=== PATIENT | male | born 1995 | race Two or more races ===

== ENCOUNTER 2025-01-08 12:42 | Emergency (ER) | payer SELFPAY ==
[2025-01-08 13:38] VITALS: BP 119/76; PULSE 87; RESP 18; TEMP 37.2; O2SAT 98; BMI 26.6
--- NOTE | 2025-01-08 14:01 | XR_ITS ---
Examination: CT lumbar spine, without contrast. 2-D sagittal reconstructions. 2-D coronal reconstructions. 3-D reconstructions. Date and time of exam:January 08, 2025 1422 hrs. Indications: Lifting injury to the lower back yesterday with persistent lower back pain CTDI: vol (mGy):19.7 DLP: (mGycm):697 Technique: Multiple 1.25 mm axial sections of the lumbar spine without intravenous contrast have been obtained. 2-D sagittal and coronal reconstructions have been obtained. 3-D reconstructions have been obtained. Low dose protocols were performed. One or more of the following dose reduction techniques were used; automated exposure control, adjustment of the mA and/or KV according to patient size, use of iterative reconstruction technique. Findings: Satisfactory alignment lumbar vertebral bodies No lumbar fracture Lumbar pedicles, laminae, transverse and posterior spinous processes intact L5-S1 3 mm central lumbar disc bulge Impression: No lumbar fracture L5-S1 3 mm central lumbar disc bulge
--- NOTE | 2025-01-08 14:03 | EDNOTE_ITS ---
ED Back Injury Pain RME/HPI General Chief Complaint: Back Pain/Injury Stated Complaint: BACK PAIN POST LIFTING BOX X YESTERDAY Time Seen by Provider: 01/08/25 13:38 Arrival date/time: 01/08/25 12:42 This is a 29-year-old male that comes in with complaints of back pain after lifting a heavy machine at his work. 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 Patient states that he was moving a heavy machine from 1 area to another. Patient states it did not initially hurt but maybe 2 to 3 hours after he had lifted the heavy machine he stated that he started having lower back pain more so on the left lateral muscles of his lower back. Patient denies any numbness tingling. Patient denies any loss of bowel or bladder control. Patient denies any past medical history. Related Data Allergies Allergy/AdvReac Type Severity Reaction Status Date / Time No Known Allergies Allergy Verified 01/08/25 12:47 Course Orders Category Date Time Status CT lumbar spine wo con Stat Exams 01/08/25 14:01 Completed Acetaminophen Tab [Tylenol ES Tab] Med 01/08/25 14:02 Discontinued 1,000 mg PO X1 ONE CYCLObenzaPRINE [Flexeril] Med 01/08/25 14:02 Discontinued 5 mg PO X1 ONE Ibuprofen Tab [Motrin Tab] Med 01/08/25 14:02 Discontinued 800 mg PO X1 ONE Vital Signs Vital signs: Vital Signs Temperature 99 F 01/08/25 13:38 Pulse Rate 87 01/08/25 13:38 Respiratory Rate 18 01/08/25 13:38 Blood Pressure 119/76 01/08/25 13:38 Pulse Oximetry (%) 98 01/08/25 13:38 Oxygen Delivery Method Room Air 01/08/25 13:38 Back Pain / Injury MDM Narrative MDM Narrative:: Patient given Tylenol, ibuprofen, and Flexeril. ct lumbar spine shows: Findings: Satisfactory alignment lumbar vertebral bodies No lumbar fracture Lumbar pedicles, laminae, transverse and posterior spinous processes intact L5-S1 3 mm central lumbar disc bulge Impression: No lumbar fracture L5-S1 3 mm central lumbar disc bulge We went to the waiting room to build up for patient and he is no longer in the waiting room. I was not able to discharge patient. Patient left during treatment. Medications / Prescriptions Medication administrations:: Medication Administration History Discontinued Medications Acetaminophen (Acetaminophen 500 Mg Tablet) 1,000 mg PO X1 ONE Stop: 01/08/25 14:03 Last Admin: 01/08/25 14:41 Dose: 1,000 mg Documented By: Cyclobenzaprine HCl (Cyclobenzaprine 5 Mg Tablet) 5 mg PO X1 ONE Stop: 01/08/25 14:03 Last Admin: 01/08/25 14:42 Dose: 5 mg Documented By: Ibuprofen (Ibuprofen Tab 400 Mg Tablet) 800 mg PO X1 ONE Stop: 01/08/25 14:03 Last Admin: 01/08/25 14:41 Dose: 800 mg Documented By: Discharge Plan Plan Patient Disposition: Elopement Patient condition on transfer: Stable Prescriptions/Referrals Referrals: No Primary/Family,Physician [Primary Care Provider] - In 1 week Problem List Clinical Impression: Back pain, Encounter related to worker's compensation claim Patient/Caregiver Discharge Instructions Discharge Activity: activity as tolerated Education Materials: Relieving Back Pain Additional Instructions: Follow up with primary provider in 1-2 days. Come back to ED if symptoms change or worsen Print Language: Indonesian MUMTAZ/HERIBERTO Supervising Physician MUMTAZ/HERIBERTO Supervising Physician: carito
[2025-01-08] MEDS: ACETAMINOPHEN 500 MG TABLET 1000 MG PO (14:41)
[2025-01-08] MEDS: IBUPROFEN TAB 400 MG TABLET 800 MG PO (14:41)
[2025-01-08] MEDS: CYCLObenzaPRINE 5 MG TABLET PO (14:42)
--- NOTE | 2025-01-08 16:30 | PC.NURSE ---
NA X 1 @ 1630
--- NOTE | 2025-01-08 16:40 | PC.NURSE ---
Addendum entered by Ty Mercedes CNA 01/08/25 16:41: Correction to note #2: 16:40 Original Note: NA X2 @ 14:40
--- NOTE | 2025-01-08 17:35 | PC.NURSE ---
NA X3 @[id number]
== END 2025-01-08 18:23 | disposition left against medical advice (07) ==
PROVIDERS: Emergency Provider Emergency Medicine
DX: Z02.6 Encounter for examination for insurance purposes (principal); M54.50 Low back pain, unspecified; Z53.29 Procedure and treatment not carried out because of patient's decision for other reasons
CPT/HCPCS: 72131; 99281; A9270